=== PATIENT | male | born 1965 | race Caucasian/White ===

== ENCOUNTER 2020-04-24 09:27 | Observation (INO) | payer OTHER ==
[~2020-04-24] VITALS: Ht 170.2 cm; Wt 99.3 kg
[~2020-04-24 09:27] MED LIST: ACTOS 45 MG45 M1 PO; ALLOPURINOL 30300 M2 PO; BAYER CHEWABLE81 MG PO; CARVEDILOL6.25 MG PO; CELEXA20 MG PO; CENTRUM SILVER1 EAC4 PO; COREG CR20 MG PO; DIABETA 5MG TABL5 MG PO; FENOFIBRATE145 MG PO; FLOMAX0.4 MG PO; GLUCOPHAGE1000 MG PO; GLYBURIDE 1.21.25 M1 PO; INDOMETHACIN 5050 MG PO; LANTUS100 UNIT/M SUBQ; LISINOPRIL-HCT1 EAC1 PO; LISINOPRIL20 MG PO; NEURONTIN800 MG PO; NITROGLYCERIN0.4 MG SL; PERCOCET PO; PLAVIX 75 MG TA75 M1 PO; PROTONIX40 M2 PO; REQUIP 1 MG TABL1 M1 PO; REQUIP2 MG PO; SIMVASTATIN80 MG PO; TAMSULOSIN HCL0.4 M1 PO; TRAZODONE HCL50 MG PO; TRICOR145 MG; TYLENOL325 MG PO; URECHOLINE 25 M25 M1 PO; VITAMIN E400 UNI2 PO; ZESTRIL20 MG PO
[2020-04-24 10:51] LABS: HEMATOCRIT 38.7 % (42.0-52.0); HEMOGLOBIN 12.9 gm/dL (14.0-18.0); MCH 31.2 pg (26.0-34.0); MCHC 33.4 g/dL (28.0-37.0); MCV 93.4 fL (80.0-100.0); MPV 8.9 fl. (7.2-11.1); RBC 4.14 mil/uL (4.50-6.00); RDW-CV 16.3 % (10.5-14.5); WBC 9.6 thou/uL (4.0-11.0)
[2020-04-24 11:01] LABS: INR 1.1; PROTIME 11.1 Seconds (9.20-11.50)
[2020-04-24 11:03] LABS: CALCIUM 8.5 mg/dL (8.5-10.1); CREATININE 1.9 mg/dL (0.6-1.3); POTASSIUM 3.5 mmol/L (3.5-5.1)
[2020-04-24 15:00] VITALS: BP 166/85
--- NOTE | 2020-04-24 15:52 | EKG ---
[place] [address] ELECTROCARDIOGRAM REPORT Name: CARMELO JUSTICE Room: [address] M.R.#: [id number] Admission: 04/24/20 Attend Phys: Tim Ashley MD Discharge: Date of : 61 Date of Service: 04/24/20 1050 Report #: [id number] THIS REPORT FOR: //name// [facility] Test Date: 2020-04-24 Test Time: 10:50:49 Pat Name: CARMELO JUSTICE Department: Room: [facility] Gender: M Web Ui Software Engineer: DILMA : 1965 Requested By: Tim Ashley Order Number: [id number] Reading MD: Tim Ashley Measurements Intervals [place] Rate: 73 P: 51 KS: 159 QRS: 44 QRSD: 159 T: 209 QT: 451 QTc: 497 Interpretive Statements Sinus rhythm Probable left atrial enlargement Left bundle branch block Compared to ECG 11/29/2013 15:11:30 Left bundle-branch block now present Electronically Signed On 04-24-2020 15:52:11 CDT by Tim Ashley [email or web address] <ELECTRONICALLY SIGNED> By: Tim Ashley MD, FAC 04/24/20 1552 1050 1050 Tim Ashley MD, [facility] /EPI
[2020-04-24] MEDS ORDERED: IMDUR 30 MG TAB30 M1 PO (16:30)
[2020-04-24] MEDS ORDERED: AMITRIPTYLINE H10 M3 PO (16:34)
[2020-04-24] MEDS ORDERED: KLOR-CON M2020 MEQ PO (16:36)
[2020-04-24] MEDS ORDERED: TOPROL XL50 MG (16:38)
[2020-04-24] MEDS ORDERED: PERCOCET 7.5-31 EAC1 PO (16:40)
[2020-04-24] MEDS ORDERED: HUMALOG100 UNIT/1 SUBQ (16:45)
[2020-04-24] MEDS ORDERED: TRESIBA100 UNIT/1 SUBQ (16:47)
[2020-04-24] MEDS ORDERED: TESSALON PERLE100 MG PO (16:48)
[2020-04-24] MEDS ORDERED: DEMADEX20 MG PO (16:51)
--- NOTE | 2020-04-24 17:53 | CARD ---
[address] [address] CARDIAC CATH REPORT Name: CARMELO JUSTICE Room: [address] M.R.#: [id number] Admission: 04/24/20 Attend Phys: Tim Ashley MD, F Discharge: Date of : 61 Report #: [id number] THIS REPORT FOR: //name// cc: Graham Huynh MD, Anthony MD ~ APPROVED REPORT Study performed: 04/24/2020 11:43:46 Patient Status: Out-Patient Room #: Event Personnel: Tim Ashley Rehabilitation Engineer, Tammie Huntley Epidemiology Internship, Roxanna Rojas RTR Scrub, Samantha George RTR Monitor, Larissa Coleman RN Epidemiology Internship, Silvestre Uriarte RTR Monitor Exam: Insertion of Dual Chamber Permanent Pacemaker Indications: Sick Sinus Syndrome/Tachy Naresh Syndrome The patient is a 54 year-old male with a history of Sick Sinus Syndrome. Conscious Sedation Start time: 1244 End Time: 1441 Versed 2 mg Procedure The patient underwent informed consent. We discussed the details of the procedure including the risks, which include, but not limited to bleeding, infection, vascular damage, cardiac perforation, and pneumothorax. He understood these risks and was willing to proceed. As such, he was brought to the EP/Cardiac Catheterization laboratory in a fasting and sedated state and prepped and draped in a sterile fashion, received IV antibiotics prior to initiation of the procedure and a venogram was performed showing patency of the left axillary vein. The patient underwent conscious sedation, with no related complications. The patient was brought to the EP/Cardiac Catheterization laboratory and the left chest and shoulder were prepped and draped in a sterile manner. During this case, Fluoroscopy and visipaque 20cc were used for imaging. The left subclavian region was infiltrated with 2% Lidocaine with Epinephrine subcutaneous anesthesia. A transverse incision was made in the left upper chest cavity. The subcutaneous pocket was formed via blunt dissection. Percutaneous venous access was achieved and [place] [address] CARDIAC CATH REPORT Name: CARMELO JUSTICE Room: [address]#: [id number] Admission: 04/24/20 Attend Phys: Tim Ashley MD, F Discharge: Date of : 61 Report #: [id number] the left Subclavian vein. Sheaths were positions using the modified Seldinger technique Through the introducer sheaths the atrial and ventricular lead wires were positioned in the right atrial appendage and right ventricular apex respectively. Utilizing fluoroscopic guidance, the atrial and ventricular lead wires were advanced over the wires and positioned in the right atria and right ventricle respectively. Capturing and sensing thresholds were verified. Electrode Parameters P Wave: 2.1 mv R Wave: 14.8 mv Atrial Threshold: 0.5 v @ 0.4 ms Ventricular Threshold: 0.5 v @ 0.4 ms Atrial Resistance: 513 ohm Ventricular Resistance: 646 ohm Dual Chamber The atrial and ventricular leads were then secured using 0 silk sutures. The subcutaneous pocket was irrigated with ancef antibiotic solution.The atrial and ventricular leads were attached to the appropriate receptacles on the pulse generator and set screws firmly tightened to insure adequate contact and stability. The lead and pulse generator were placed into the subcutaneous pocket. Sharp and sponge counts were confirmed to be correct. At this time the pocket was closed subcutaneously with a 0 Vicryl and the skin was closed with a 4.0 Vicryl. The operative site was dressed in sterile fashion with skin affix and the patient was transferred to the floor in stable condition. Complications The patient tolerated the procedure well and there were no complications associated with the procedure. Findings Specimens Removed: No Estimated Blood Loss: 5 cc Conclusion successful placement of a dual chamber mri compatible medtronic pacemaker generator and leads <ELECTRONICALLY SIGNED> By: Tim Ashley MD, FACC 04/24/20 1753 1753 [id number] Ashley MD, FACC /INF
[2020-04-24 20:44] VITALS: BP 135/78
[2020-04-25] VITALS: BP 115/93
[2020-04-25 04:00] VITALS: BP 125/50; BP 174/101
[2020-04-25 06:30] VITALS: BP 168/89
[2020-04-25 08:00] VITALS: BP 150/83
--- NOTE | 2020-04-25 10:17 | H ---
[place] [address] HISTORY AND PHYSICAL Name: CARMELO JUSTICE Room: [address] Larry Payne#: [id number] Admission: 04/24/20 Attend Phys: Tim Ashley MD, F Discharge: Date of : 61 Report #: [id number] THIS REPORT FOR: //name// cc: Graham Huynh MD, Anthony MD ~ CC: Graham Ashley HISTORY OF PRESENT ILLNESS: The patient is a 54-year-old white male who came to the outpatient department for placement of a permanent pacemaker. The patient has an extensive past medical history. He has had multiple stents in the past and eventually underwent quadruple coronary artery bypass surgery in 2006 at [facility]. He has had multiple stents since that time. His last stent was apparently a year ago at [facility]. Apparently last summer he actually had balloon angioplasty of the vein graft, but no stents were placed. Recently, he has been followed by [facility]. Because of insurance purposes, I actually saw him in the office in July for followup. He has a history of a cardiomyopathy with previous echocardiogram showing ejection fraction of 35%. In 2018 he underwent implantation of a subcutaneous ICD at [facility] for primary prevention. The device was checked at home with his transmitter. He has had no discharges of the defibrillator. He is not very active because of chronic back pain and is primarily in a walker. Recently interrogation of the defibrillator showed evidence of pauses lasting more than 5 seconds. He denies recent chest pain, but does get short of breath and exerts himself. He does note some lightheadedness, but no syncope. He does have chronic edema. Because of the long pauses and symptomatic bradycardia, recommended placement of a permanent pacemaker. PAST MEDICAL HISTORY: Significant for back surgery. He now has a nerve stimulator in place, carpal tunnel release. He has had a laminectomy. He has a history of hyperlipidemia, hypertension. He does have diabetes. MEDICATIONS: Consist of allopurinol, aspirin, Lipitor, Plavix, Neurontin, glipizide, insulin, Imdur, lisinopril, oxycodone for back pain, Protonix, potassium, Requip, Demadex, Desyrel. ALLERGIES: He has no known drug allergies. FAMILY HISTORY: His mother had bypass surgery. SOCIAL HISTORY: He is . He and his live in [place], [place]. He is retired from [employer]. No smoking. Rarely drinks alcohol. REVIEW OF SYSTEMS: No history of stroke or asthma. He does have sleep apnea, uses CPAP. No liver disease. He has had kidney stones. No chronic skin condition[place] [address] HISTORY AND PHYSICAL Name: CARMELO JUSTICE Room: [address] Kerry#: [id number] Admission: 04/24/20 Attend Phys: Tim Ashley MD, F Discharge: Date of : 61 Report #: [id number] PHYSICAL EXAMINATION: GENERAL: Revealed a middle-aged male, appeared in no distress. VITAL SIGNS: Blood pressure 140/80, pulse is 70. HEENT: Mucous membranes are moist. NECK: Neck veins do not appear distended. CHEST: Clear to auscultation. CARDIOVASCULAR: Regular rate and rhythm. ABDOMEN: Soft. EXTREMITIES: Had trace edema. Dorsalis pedis pulse 1+ bilaterally. SKIN: Cool and dry. RADIOLOGICAL DATA: ECG showed a sinus rhythm, nonspecific ST-segment changes. LABORATORY DATA: Sodium 142, creatinine 1.9, glucose 39. Liver function studies were normal. His white blood cell count 9.6, hemoglobin 12.9. IMPRESSION AND RECOMMENDATIONS: 1. Sick sinus syndrome. The patient with long pauses. Recommend placement of a permanent pacemaker. 2. Diabetes. 3. Coronary artery disease. No recent angina. I would continue Plavix. 4. Hypertension. The patient is on DAMIÁN inhibitor. 5. Previous implantation of a subcutaneous ICD. No recent discharges. 6. Hyperlipidemia. The patient is on a statin drug. 7. Cardiomyopathy. The patient is on an DAMIÁN inhibitor. Now the patient will have a pacemaker, I would consider adding carvedilol. 8. Chronic back pain. The patient has a nerve stimulator in place. 9. Sleep apnea. The patient cannot tolerate CPAP. 10. Chronic kidney disease. <ELECTRONICALLY SIGNED> By: Tim Ashley MD, [facility] 04/25/20 1017 1524 [id number] Stacey Ashley MD, FAC /nt
[2020-04-25 12:04] VITALS: BP 157/83
[2020-04-25 12:55] VITALS: BP 157/83
--- NOTE | 2020-04-27 14:13 | EKG ---
[place] [address] ELECTROCARDIOGRAM REPORT Name: CARMELO JUSTICE HENNY Room: [address] M.R.#: [id number] Admission: 04/24/20 Attend Phys: Tim Ashley MD Discharge: 04/25/20 Date of : 61 Date of Service: 04/25/[address] Report #: [id number] THIS REPORT FOR: //name// [facility] Test Date: 2020-04-25 Test Time: 06:19:28 Pat Name: CARMELO JUSTICE Department: Room: [address] Gender: M Superintendent Drivers: [facility] : 1965 Requested By: Tim Ashley Order Number: [id number] Naye MD: Claude Quinonez Measurements Intervals [place] Rate: 84 P: 51 SC: 151 QRS: 81 QRSD: 156 T: -88 QT: 436 QTc: 516 Interpretive Statements Sinus rhythm Probable left atrial enlargement Left bundle branch block Since the prior tracing, no significant changes noted Electronically Signed On 04-27-2020 14:12:58 CDT by Claude Quinonez [email or web address] <ELECTRONICALLY SIGNED> By: Claude Quinonez MD, [facility] 04/27/20 1412 0619 0619 Claude Quinonez MD, [facility] /EPI
--- NOTE | 2020-04-28 14:18 | D ---
[address] [address] DISCHARGE SUMMARY Name: CARMELO JUSTICE Room: [address] Larry Payne#: [id number] Admission: 04/24/20 Attend Phys: Tim Ashley MD, F Discharge: 04/25/20 Date of : 61 Report #: [id number] THIS REPORT FOR: //name// cc: Graham Huynh MD, Anthony MD ~ THIS REPORT FOR: //name// CC: Graham Ashley DATE OF SERVICE: 04/25/2020 DISCHARGE DIAGNOSES: 1. Sick sinus syndrome. 2. Diabetes. 3. Coronary artery disease. 4. Hypertension. 5. Dilated cardiomyopathy. 6. Hyperlipidemia. 7. Chronic back pain. 8. Sleep apnea. CONSULTANTS: None. PROCEDURES: Placement of a permanent dual-chamber MRI compatible pacemaker via the left subclavian vein. HISTORY OF PRESENT ILLNESS: The patient is a 54-year-old white male who was brought to the outpatient department to undergo placement of a permanent pacemaker. The patient has had multiple stents in the past and eventually underwent coronary artery bypass surgery at [facility] in 2006. He has had several stents since that time. His last stent was apparently a year ago at [facility]. Apparently a year ago, He also had balloon angioplasty of the vein graft, but no stents were placed. Because of insurance purposes, he was referred to my office for followup. Recently, he had been followed at [facility] in [place]. He has a history of a cardiomyopathy with previous echocardiogram showing an ejection fraction of 35%. In 2018, he underwent implantation of subcutaneous ICD at [facility] for primary prevention. The device was checked at home with a transmitter with bOombate. He has had no recent discharges of defibrillator. He is not very active because of chronic back pain and he is primarily in a walker. Recently interrogation of his defibrillator showed evidence of pauses lasting more than 5 seconds. He denies recent chest pain. He does get short of breath and exerts himself. He notes occasional lightheadedness, no syncope. He has chronic edema. Because of the long pauses and symptomatic bradycardia, I [place] [address] DISCHARGE SUMMARY Name: CARMELO JUSTICE Room: [address] Larry Payne#: [id number] Admission: 04/24/20 Attend Phys: Tim Ashley MD, F Discharge: 04/25/20 Date of : 61 Report #: [id number] permanent pacemaker. PAST MEDICAL HISTORY: Significant for previous back surgery, nerve stimulator in place, carpal tunnel release, hyperlipidemia, hypertension, and diabetes. MEDICATIONS: Consist of allopurinol, aspirin, Lipitor, Plavix, Neurontin, glipizide, insulin, Imdur, lisinopril, oxycodone, Protonix, potassium, ReQuip, Demadex, Desyrel. ALLERGIES: He has no known drug allergies. PHYSICAL EXAMINATION: VITAL SIGNS: On admission, blood pressure was 140/80, pulse is 70. CHEST: Clear to auscultation. CARDIOVASCULAR: Regular rate and rhythm. ABDOMEN: Soft. EXTREMITIES: Had trace edema. LABORATORY DATA: ECG showed a sinus rhythm, nonspecific ST-segment changes. Lab work included sodium 142, potassium 1.9. Liver function studies were normal. Hemoglobin 12.9. HOSPITAL COURSE: The patient was brought to the outpatient department. He was taken to the cardiac catheterization lab after receiving Ancef 1 gram intravenously. The left subclavicular area was cleaned with ChloraPrep and sterilely draped in usual fashion. I then inserted a permanent dual-chamber MRI compatible [employer] pacemaker. He tolerated the procedure well. Followup chest x-ray showed no pneumothorax. He remained in sinus rhythm. Interrogation of the device the next day by [employer] showed normal thresholds for sensing and capture of both the atrial and ventricular leads. At the time of discharge, he had no complaints. At the time of discharge, he had a blood pressure of 150/80, pulse is 80, he is afebrile. Followup lab work including fasting blood sugar 254. He was discharged on his home medications that include allopurinol, aspirin, Lipitor, Plavix, Neurontin, glipizide, insulin, isosorbide, lisinopril, oxycodone, Protonix, potassium, ReQuip, Demadex, trazodone. He was discharged with return to care of Dr. Graham Huynh for routine medical care. I plan on seeing him back in Cardiology Clinic in 2 weeks for followup. His prognosis is guarded due to his history of ischemic cardiomyopathy. I am not sure the indications for subcutaneous ICD in the patient since there appeared to be no lack of IV access or recurrent bacteremia. Unfortunately, since he had a subcutaneous ICD, the device could not pace. I did have a discussion with the patient on whether to remove the subcutaneous ICD and implant or transvenous ICD for pacing purposes. However, since the subcutaneous ICD appeared to be [address] [address] DISCHARGE SUMMARY Name: CARMELO JUSTICE Room: [address] Larry Payne#: [id number] Admission: 04/24/20 Attend Phys: Tim Ashley MD, F Discharge: 04/25/20 Date of : 61 Report #: [id number] functioning, it was decided to implant a dual chamber pacemaker for pacing purposes. bOombate was present at the time of the implant. <ELECTRONICALLY SIGNED> By: Tim Ashley MD, FACC 04/28/20 1418 0824 [id number] Ashley MD, FACC /nt
== END 2020-04-25 14:10 | disposition home or self-care (01) ==
LOC: M.CL 09:27 → M.TBA-ER 14:51 → M.2W 15:15
PROVIDERS: ADMIT Internal Medicine Cardiovascular Disease; ATTEND Internal Medicine Cardiovascular Disease
DX: I49.5 Sick sinus syndrome (principal); I25.10 Atherosclerotic heart disease of native coronary artery without angina pectoris; I42.0 Dilated cardiomyopathy; E78.5 Hyperlipidemia, unspecified; G47.30 Sleep apnea, unspecified; G89.29 Other chronic pain; M54.9 Dorsalgia, unspecified; I12.9 Hypertensive chronic kidney disease with stage 1 through stage 4 chronic kidney disease, or unspecified chronic kidney disease; E11.22 Type 2 diabetes mellitus with diabetic chronic kidney disease; N18.9 Chronic kidney disease, unspecified; Z79.82 Long term (current) use of aspirin; Z79.899 Other long term (current) drug therapy